=== PATIENT | male | born 1945 | race Caucasian/White ===

== ENCOUNTER → 2018-06-22 | Outpatient (CLI) | payer MEDICARE, OTHER ==
--- NOTE | 2018-06-22 14:04 | RADIOLOGY REPORT (SQ) ---
EXAM DESCRIPTION: U/S RETROPERITON (RENAL/AORTA) COMPLETED DATE/TIME: 06/22/2018 1:40 pm REASON FOR STUDY: R31.29 OTHER MICROSCOPIC HEMATURIA R31.29 OTHER MICROSCOPIC HEMATURIA COMPARISON: None. TECHNIQUE: Dynamic and static grayscale images acquired of the kidneys and bladder and recorded on P ACS. Additional selected color Doppler and spectral images recorded. LIMITATIONS: None. FINDINGS: RIGHT KIDNEY: Normal size 10.5 cm in length. Normal echogenicity. No solid or suspicious m asses. 2 cm simple cyst at right lower pole kidney. No hydronephrosis. No calcifications. LEFT KIDNEY: Normal size, 10.8 cm in length. Normal echogenicity. No solid or suspicious masses. No hydronephrosis. No calcifications. BLADDER: No masses. OTHER FINDINGS: 3.7 cm anechoic cystic structure in the right lower quadrant, could represent reservo ir for a penile prosthesis IMPRESSION: NORMAL RENAL AND BLADDER ULTRASOUND. TECHNICAL DOCUMENTATION: JOB ID: [id number] [employer]- All Rights Reserved Reading location - IP/workstation name: [email or web address]
== END ==
LOC: RAD 14:54
PROVIDERS: ATTEND Urology
DX: R31.29 Other microscopic hematuria (principal)
CPT/HCPCS: 76770

== ENCOUNTER 2018-08-18 08:00 | Day surgery (SDC) | payer MEDICARE ==
[2018-08-12 10:26] LABS: HEMATOCRIT 37.4 % (37.9-51.0); MEAN CORPUSCULAR HEMOGLOBIN 31.6 pg (27.0-33.4); MEAN CORPUSCULAR HGB CONC 34.7 g/dL (32.0-36.0); MEAN CORPUSCULAR VOLUME 91 fl (80-97); PLATELET COUNT 285 10^3/uL (150-450); RED CELL DISTRIBUTION WIDTH 13.2 % (11.5-14.0); WHITE BLOOD COUNT 5.5 10^3/uL (4.0-10.5)
[2018-08-12 10:56] LABS: ANION GAP 12 (5-19); BLOOD UREA NITROGEN 33 mg/dL (7-20); CALCIUM 9.9 mg/dL (8.4-10.2); CARBON DIOXIDE 27 mmol/L (22-30); CHLORIDE 105 mmol/L (98-107); GLUCOSE 99 mg/dL (75-110); POTASSIUM 4.4 mmol/L (3.6-5.0); SODIUM 144.4 mmol/L (137-145)
[~2018-08-18 08:00] MED LIST: CEFAZOLIN 1 GM/D5W RTU 1 GM/50 ML RTUPB IV PRN; LACTATED RINGERS 1000 ML IV PRN; LIDOCAINE 0.5% INJ-PF (5 MG/ML) 50 ML SDV SUBCUT PRN
[2018-08-18] MEDS ORDERED: CEFAZOLIN 1 GM/D5W RTU 1 GM/50 ML RTUPB IV ONE (08:17)
[2018-08-18 08:40] LABS: INTERNATIONAL RATION (INR) 1.07; PROTHROMBIN TIME 14.4 SEC (11.4-15.4)
[2018-08-18 08:41] LABS: PARTIAL THROMBOPLASTIN TIME 28.1 SEC (23.5-35.8)
--- NOTE | 2018-08-18 12:02 | RADIOLOGY REPORT (SQ) ---
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 RADIONUCLIDE AND DOSE: 564 microcuries TC-99m tilmanocept - [employer]. The route of agent administration: Subcutaneous in the skin. TECHNIQUE: The skin of the LEFT UPPER QUADRANT ANTERIOR ABDOMINAL WALL JUST INFERIOR TO THE RIB ANTONIO IN was prepped in sterile fashion. The radiopharmaceutical was administered in equally divided doses in the skin around the melanoma excision site LIMITATIONS: None. FINDINGS: Images demonstrate activity at the injection site. There is migration of activity towards the left axilla. No migration of activity to the left inguinal region. IMPRESSION: ADMINISTRATION OF RADIOPHARMACEUTICAL FOR MELANOMA SENTINEL LYMPH NODE EVALUATION. TECHNICAL DOCUMENTATION: JOB ID: [id number] [employer]- All Rights Reserved Reading location - IP/workstation name: [email or web address]
[2018-08-18] MEDS ORDERED: MIDAZOLAM 2 MG/2 ML INJ ONE (12:35)
[2018-08-18] MEDS ORDERED: FENTANYL CITRATE INJ/PF 100 MCG/2 ML AMPUL ONE (12:35)
[2018-08-18] MEDS ORDERED: PROPOFOL INJ 200 MG/20 ML VIAL IV ONE (12:36)
[2018-08-18] MEDS ORDERED: LIDOCAINE 1%/EPINEPHRINE INJ 20 ML VIAL ONE (12:36)
[2018-08-18] MEDS ORDERED: METHYLENE BLUE 50 MG/10 ML AMPULE ONE (13:11)
--- NOTE | 2018-08-18 14:34 | Operative Report ---
Operative Report DATE OF SURGERY: 08/18/18 PREOPERATIVE DIAGNOSIS: 1. 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 2. Status post excision of left shoulder collision tumor POSTOPERATIVE DIAGNOSIS: Same OPERATION: 1. Wide excision left sided abdominal wall melanoma site with primary closure. 2. Dual mapping technique sentinel lymph node biopsy left axilla x4. 3. Reexcision of collision tumor excision site SURGEON: [facility] [employer] [facility] ASSISTANT: EMMA SAINZ ANESTHESIA: GA TISSUE REMOVED OR ALTERED: 1. Wide excision melanoma site left abdominal wall. 2. Sanborn lymph nodes x4 left axilla. 3. Reexcision of left shoulder collision tumor COMPLICATIONS: None ESTIMATED BLOOD LOSS: Scant INTRAOPERATIVE FINDINGS: See below PROCEDURE: The patient was seen in the preop holding area after going lymphoscintigraphy of the left abdominal wall melanoma site. There was areas of increased activity in the left axilla. The patient was taken from the preop holding area to the main operating room where general anesthesia was induced. Left arm was abducted, left upper quadrant melanoma site was exposed, cleaned with alcohol and approximately 200 cc of slightly dilute methylene blue was injected into the melanoma site at 4 quadrants and the skin massage. The left axilla and left melanoma site were then prepped and draped in a sterile fashion. Surgical plan and surgical timeout were conducted. We approached the left axilla first. Using the neoprobe as a guide, we performed sentinel lymph node biopsy x4. The first sentinel lymph node was not below in vivo count 927, ex vivo count 1740; lymph node hot and not blue ex vivo count 4247; third sentinel lymph node hot and not blue in vivo count 1268 with ex vivo count of 1299; final sentinel lymph node hot and not blue with an ex vivo count of 4017. Residual counts were minimal. All 4 lymph nodes were removed from the low axilla. We now marked to the skin around the previous melanoma site left upper abdominal wall such that a wide excision could be performed approximately 7 cm wide and 11 cm in the vertical orientation. Skin was anesthetized with quarter percent Marcaine and the ellipse made to excise the skin and subcutaneous tissue and superficial fascia consistent with a wide excision. This was performed using 10 blade, and then electrocautery. The specimen was removed from the field, secured with stitches, 4-0 Prolene at the 12 o'clock position, short and in the lateral position long. The specimen was sent for permanent analysis. Both the left axillary and left anterior abdominal wall incisions were closed with 2-0 Vicryl at the deep and superficial levels. Benzoin and Steri-Strips applied. The patient's left arm was rotated medially, posterior shoulder exposed, and the previous excision site of the collision tumor prepped with Betadine and anesthetized with quarter percent Marcaine. Markings were made on the skin for a limited reexcision of the action site approximately 2 cm wide and 4 cm long. The ellipse of skin was removed with a #10 blade, taken down to the shoulder fascia. The wound was closed in layers. The specimen was sent to pathology for permanent analysis, without orientation. Wound closed with interrupted 2 and 3-0 Vicryl suture. Benzoin and Steri-Strips applied. Patient tolerated procedure well, taken recovery in stable condition. The physician assistant project engineer, Ms. Javier, provided assistance during this case by: Assisting retracting tissue, instillation of local anesthesia and closure of skin incisions.
--- NOTE | 2018-08-18 14:38 | Discharge Summary ---
Discharge Summary (SDC) - Discharge Final Diagnosis: Melanoma left upper quadrant abdominal wall; history of collision tumor left shoulder Date of Surgery: 08/18/18 Discharge Date: 08/18/18 Condition: Good Treatment or Instructions: Leave all dressings and Steri-Strips on for 48 hours. May shower in 48 hours; prescription provided. Return to [facility] in 1-2 weeks for postoperative check. Referrals: ASTRID REYES MD [Primary Care Provider] - Discharge Diet: As Tolerated, Other (Comments) - No heavy Discharge Activity: Slowly Increase Activity Home Care Assistance: None Needed Report the Following to Your Physician Immediately: Shortness of Breath, Increase in Pain, Fever over 101 Degrees
[2018-08-18] MEDS ORDERED: OXYCODONE-ACETAMINOPHEN 5-325 MG TABLET PO PRN (14:45)
[2018-08-18] MEDS ORDERED: FENTANYL CITRATE INJ/PF 100 MCG/2 ML AMPUL IV PRN ×3 (15:19)
[2018-08-18] MEDS ORDERED: DIPHENHYDRAMINE HCL 50 MG/ML VIAL IV PRN (15:19)
[2018-08-18] MEDS ORDERED: PROMETHAZINE HCL INJ 25 MG/1 ML VIAL IV PRN (15:19)
[2018-08-18] MEDS ORDERED: GLYCOPYRROLATE 1 MG/5 ML SYRINGE ONE (16:02)
[2018-08-18] MEDS ORDERED: DEXAMETHASONE SOD PHOSPHATE INJ 4 MG/1 ML VIAL ONE (16:02)
[2018-08-18] MEDS ORDERED: ONDANSETRON HCL INJ/PF 4 MG/2 ML SDV ONE (16:02)
[2018-08-18] MEDS ORDERED: NEOSTIGMINE METHYLSULFATE 10 MG/10 ML VIAL ONE (16:02)
[2018-08-18 17:27] VITALS: BP 153/74
== END 2018-08-18 17:00 | disposition home or self-care (01) ==
LOC: OROUT 08:00
PROVIDERS: ATTEND Surgery
DX: C44.619 Basal cell carcinoma of skin of left upper limb, including shoulder (principal); C43.59 Malignant melanoma of other part of trunk; I10 Essential (primary) hypertension; I71.4 Abdominal aortic aneurysm, without rupture; I25.10 Atherosclerotic heart disease of native coronary artery without angina pectoris; K59.00 Constipation, unspecified; R01.1 Cardiac murmur, unspecified; I38 Endocarditis, valve unspecified; Z95.5 Presence of coronary angioplasty implant and graft; Z85.46 Personal history of malignant neoplasm of prostate; Z87.891 Personal history of nicotine dependence; Z79.82 Long term (current) use of aspirin; Z79.899 Other long term (current) drug therapy; Z79.02 Long term (current) use of antithrombotics/antiplatelets; Z01.818 Encounter for other preprocedural examination
CPT/HCPCS: 36415 ×2; 85027; 85610; 85730; 80048; 88342 ×2; 88341 ×2; 88305 ×2; 88307 ×2; 78195; 22900; 38500; 12031; 11602; A9520; J2250; J0690; J1100; J3010; J3490 ×2; J2405; J2704; Q9968; 1610